=== PATIENT | male | born 1990 | race Caucasian/White ===

== ENCOUNTER 2018-09-02 17:39 | Emergency (ER) | payer BC ==
[~2018-09-02] VITALS: Ht 165.1 cm; Wt 114.3 kg
== END 2018-09-02 19:50 | disposition home or self-care (01) ==
LOC: ER 17:39
DX: S00.06XA Insect bite (nonvenomous) of scalp, initial encounter (principal); L03.811 Cellulitis of head [any part, except face]; D72.828 Other elevated white blood cell count; W57.XXXA Bitten or stung by nonvenomous insect and other nonvenomous arthropods, initial encounter; Y93.89 Activity, other specified; Y92.89 Other specified places as the place of occurrence of the external cause; Y99.8 Other external cause status

== ENCOUNTER 2020-05-01 23:46 | Emergency (ER) | payer BC ==
[~2020-05-01] VITALS: Ht 165.1 cm; Wt 122.9 kg
[2020-05-02] MEDS ORDERED: BENADRYL ALLERG25 MG PO (01:41)
[2020-05-02] MEDS ORDERED: MEDROLPACK PO (01:41)
[2020-05-02] MEDS ORDERED: NAPROXEN375 MG PO (01:41)
[2020-05-02] MEDS ORDERED: BACTRIM DS TAB1 EACH PO (01:55)
== END 2020-05-02 02:03 | disposition home or self-care (01) ==
LOC: ER 23:46
DX: S90.872A Other superficial bite of left foot, initial encounter (principal); T63.441A Toxic effect of venom of bees, accidental (unintentional), initial encounter; R42 Dizziness and giddiness; R06.02 Shortness of breath; Y93.89 Activity, other specified; Y92.89 Other specified places as the place of occurrence of the external cause; Y99.8 Other external cause status

== ENCOUNTER → 2022-09-28 | Emergency (ER) | payer OTHER ==
[~2022-09-28] VITALS: Ht 152.4 cm; Wt 135.2 kg
[~2022-09-28] MED LIST: BACTRIM DS TAB1 EACH PO; BENADRYL ALLERG25 MG PO; MEDROLPACK PO; NAPROXEN375 MG PO
== END | disposition left against medical advice (07) ==
LOC: ER 18:35
DX: R53.81 Other malaise (principal); Z88.0 Allergy status to penicillin